=== PATIENT | female | born 1985 | race Caucasian/White ===

== ENCOUNTER 2018-09-23 07:33 | Emergency (ER) | payer OTHER ==
[~2018-09-23] VITALS: Ht 157.5 cm; Wt 75.0 kg
[2018-09-23] MEDS ORDERED: ZOLO100T PO (07:42)
[2018-09-23] MEDS ORDERED: LABE10TAB PO (07:42)
[2018-09-23] MEDS ORDERED: FIOR1CAP PO (07:42)
[2018-09-23] MEDS ORDERED: ACETAMINOPHEN 500 MG TAB PO ONE (08:15)
[2018-09-23 08:24] LABS: BASO % 0.4 % (0.0-1.0); EOS # 0.1 10^3/uL (0.0-0.50); EOS % 1.5 % (0.0-3.0); HEMATOCRIT 39.3 % (36.0-47.0); HEMOGLOBIN 13.5 g/dl (12.0-15.5); LYMPH # 1.7 10^3/uL (1.5-4.5); LYMPH % 24.3 % (24.0-44.0); MEAN CORPUSCULAR HEMOGLOBIN 29.9 pg (27.0-33.0); MEAN CORPUSCULAR HGB CONC 34.4 g/dl (32.0-36.5); MEAN CORPUSCULAR VOLUME 86.9 fl (80.0-96.0); MONO # 0.4 10^3/uL (0.0-0.8); MONO % 6.1 % (0.0-5.0); NEUTROPHILS # 4.6 10^3/uL (1.8-7.7); NEUTROPHILS % 67.6 % (36.0-66.0); PLATELET COUNT, AUTOMATED 311 10^3/uL (150-450); RED BLOOD COUNT 4.52 10^6/uL (4.00-5.40); WHITE BLOOD COUNT 6.8 10^3/uL (4.0-10.0)
[2018-09-23 08:26] LABS: APPEARANCE, URINE CLEAR (CLEAR); BACTERIA, URINE AUTO NEGATIVE (NEGATIVE); BILIRUBIN, URINE AUTO NEGATIVE (NEGATIVE); BLOOD, URINE BLOOD NEGATIVE (NEGATIVE); COLOR, URINE YELLOW (YELLOW); GLUCOSE, URINE (UA) AUTO NEGATIVE (NEGATIVE); KETONE, URINE AUTO NEGATIVE (NEGATIVE); LEUKOCYTE ESTERASE, URINE AUTO NEGATIVE (NEGATIVE); NITRITE, URINE AUTO NEGATIVE (NEGATIVE); PROTEIN, URINE AUTO NEGATIVE (NEGATIVE); RBC, URINE AUTO 1 /HPF (0-3); SPECIFIC GRAVITY URINE AUTO 1.014 (1.002-1.035); SQUAMOUS EPITHELIAL CELL UR AU 0 /HPF (0-6); UROBILINOGEN, URINE AUTO 0.2 mg/dL (0.0-2.0); WBC, URINE AUTO 1 /HPF (0-3)
[2018-09-23 08:53] LABS: ALT/SGPT 57 U/L (12-78); BILIRUBIN,TOTAL 0.2 MG/DL (0.2-1.0); BLOOD UREA NITROGEN 22 MG/DL (7-18); C REACTIVE PROTEIN QUANTITATIV < 0.30 MG/DL (0.00-0.30); CALCIUM LEVEL 9.1 MG/DL (8.5-10.1); CARBON DIOXIDE LEVEL 27 MEQ/L (21-32); CHLORIDE LEVEL 104 MEQ/L (98-107); CREATININE FOR GFR 0.65 MG/DL (0.55-1.30); GAMMA GLUTAMYLTRANSPEPTIDASE 128 U/L (5-55); GLOMERULAR FILTRATION RATE > 60.0 (>60); GLUCOSE, FASTING 96 MG/DL (70-100); LIPASE 875 U/L (73-393); POTASSIUM SERUM 4.2 MEQ/L (3.5-5.1); SODIUM LEVEL 137 MEQ/L (136-145); TOTAL PROTEIN 7.4 GM/DL (6.4-8.2)
--- NOTE | 2018-09-23 09:34 | REP ---
Right upper quadrant sonography: History: Upper quadrant pain. Comparison study: No comparison study. Findings: Scanning through the right upper quadrant of the abdomen demonstrates a normal sized, thin-walled gallbladder without evidence of stone or polyp. Common bile duct is normal measuring 0.3 cm in greatest diameter. No focal liver lesion is seen. Liver size is normal. No pancreatic abnormality is observed. No right renal abnormality is seen. There is no evidence of ascites. The right kidney measures 11.2 x 5.0 x 4.8 cm. Impression: Negative right upper quadrant sonography. Electronically Signed by Ivan Ayala MD 09/23/2018 09:25 A
[2018-09-23] MEDS ORDERED: KETO10TAB PO (09:41)
[2018-09-23 09:52] VITALS: BP 136/94
== END 2018-09-23 10:08 | disposition home or self-care (01) ==
LOC: M ED 07:33
DX: K80.50 Calculus of bile duct without cholangitis or cholecystitis without obstruction (principal); I10 Essential (primary) hypertension; F32.9 Major depressive disorder, single episode, unspecified; R51 Headache; Z87.442 Personal history of urinary calculi; Z88.0 Allergy status to penicillin; Z79.899 Other long term (current) drug therapy

== ENCOUNTER 2018-09-26 04:23 | Inpatient (IN) | payer OTHER ==
[~2018-09-26] VITALS: Ht 157.5 cm; Wt 77.1 kg
[~2018-09-26 04:23] MED LIST: FIOR1CAP PO; KETO10TAB PO; LABE10TAB PO; ZOLO100T PO
[2018-09-26] MEDS ORDERED: NS 1,000 ML IV ONE ×2 (06:30→14:00)
[2018-09-26] MEDS ORDERED: ONDANSETRON 4MG/2ML VIAL (J2405) IV ONE (06:30)
[2018-09-26] MEDS ORDERED: KETOROLAC 30 MG/ML VIAL (J1885) IV ONE (06:30)
[2018-09-26 06:34] LABS: BASO % 0.7 % (0.0-1.0); EOS # 0.1 10^3/uL (0.0-0.50); EOS % 2.9 % (0.0-3.0); LYMPH # 1.6 10^3/uL (1.5-4.5); MEAN CORPUSCULAR HGB CONC 34.2 g/dl (32.0-36.5); MEAN CORPUSCULAR VOLUME 87.6 fl (80.0-96.0); MONO # 0.3 10^3/uL (0.0-0.8); MONO % 7.1 % (0.0-5.0); NEUTROPHILS # 2.1 10^3/uL (1.8-7.7); NEUTROPHILS % 50.1 % (36.0-66.0); RED BLOOD COUNT 4.34 10^6/uL (4.00-5.40); WHITE BLOOD COUNT 4.2 10^3/uL (4.0-10.0)
[2018-09-26 06:42] LABS: HCG, SERUM QUALITATIVE NEGATIVE (NEGATIVE)
[2018-09-26 06:58] LABS: ALBUMIN 3.7 GM/DL (3.2-5.2); ALT/SGPT 40 U/L (12-78); AMYLASE 156 U/L (25-115); BILIRUBIN,DIRECT < 0.1 MG/DL (0.0-0.2); BILIRUBIN,TOTAL 0.2 MG/DL (0.2-1.0); BLOOD UREA NITROGEN 16 MG/DL (7-18); CARBON DIOXIDE LEVEL 25 MEQ/L (21-32); CHLORIDE LEVEL 106 MEQ/L (98-107); CREATININE FOR GFR 0.66 MG/DL (0.55-1.30); GLOMERULAR FILTRATION RATE > 60.0 (>60); GLUCOSE, FASTING 84 MG/DL (70-100); LIPASE 1704 U/L (73-393); POTASSIUM SERUM 4.6 MEQ/L (3.5-5.1); SODIUM LEVEL 140 MEQ/L (136-145)
[2018-09-26] MEDS ORDERED: ISOVUE-370 76% 125ML VIAL (Q9967 PER ML) As Ordered ONE (06:59)
--- NOTE | 2018-09-26 08:06 | REPVR ---
EXAM: CT Abdomen and Pelvis With Contrast EXAM DATE/TIME: 09/26/2018 6:16 AM CLINICAL HISTORY: 33 years old, female; Pain; Abdominal pain; Localized; Right upper quadrant (ruq); Additional info: Ruq pain; Nausea; Elevated lipase 2 days ago TECHNIQUE: Imaging protocol: Axial computed tomography images of the abdomen and pelvis with intravenous contrast. Coronal and sagittal reformatted images were created and reviewed. Radiation optimization: All CT scans at this facility use at least one of these dose optimization techniques: automated exposure control; mA and/or kV adjustment per patient size (includes targeted exams where dose is matched to clinical indication); or iterative reconstruction. Contrast material: ISO Contrast volume: 100 ml Contrast route: AC COMPARISON: Abdomen, limited US 09/23/2018 8:40 AM FINDINGS: Lower thorax: No acute airspace or pleural disease. ABDOMEN: Liver: Fatty infiltration of the liver. Gallbladder and bile ducts: Contracted gallbladder limiting evaluation. No biliary ductal dilatation. Pancreas: No pancreatic mass or ductal dilatation. Spleen: No splenomegaly. Adrenals: Subtle right adrenal nodularity. Kidneys and ureters: Normal renal morphology. No hydronephrosis. Stomach and bowel: Wall thickening in the proximal stomach. Mild dilatation of the distal ileum. Prominent stool. Appendix: Appendix not visualized. PELVIS: Bladder: Normal bladder morphology. Reproductive: Indwelling tampon. 10 mm right ovarian follicle. ABDOMEN and PELVIS: Intraperitoneal space: No significant free fluid. Bones/joints: No acute osseous pathology. Soft tissues: Unremarkable. Vasculature: Normal caliber of the abdominal aorta. Lymph nodes: Mesenteric lymph nodes including a 17 x 12 mm lymph node in the right lower quadrant. IMPRESSION: 1. Wall thickening in the proximal stomach. 2. Additional findings as described above. Electronically signed by: Daniel Saini On 09/26/2018 08:06:12 AM
[2018-09-26] MEDS ORDERED: ONDANSETRON 4MG/2ML VIAL (J2405) IV PRN (08:45)
[2018-09-26] MEDS ORDERED: SENOKOT S TAB PO SCH (09:00)
[2018-09-26] MEDS ORDERED: E-Z-PAQUE 96% w/w SUSP 176GM BTL As Ordered ONE (09:24)
[2018-09-26] MEDS ORDERED: VITMTA PO (09:25)
[2018-09-26] MEDS ORDERED: E-Z-HD 98% w/w 340GM SUSP BTL As Ordered ONE (09:25)
[2018-09-26] MEDS ORDERED: ZOFR4TAB16 PO (09:25)
[2018-09-26] MEDS ORDERED: KETO10TAB PO (09:25)
[2018-09-26] MEDS ORDERED: SERT50TA PO (09:25)
[2018-09-26] MEDS ORDERED: E-Z-GAS II EFFERVESCENT PACKET (SODIUM BICARB./CITRIC ACID/SIMETHICONE) As Ordered ONE (09:25)
[2018-09-26] MEDS ORDERED: LABE20TAB PO (09:25)
[2018-09-26] MEDS ORDERED: METOCLOPRAMIDE INJ 10MG/2ML VIAL (J2765) IV PRN (10:30)
[2018-09-26] MEDS ORDERED: GI COCKTAIL 50ML BTL(HYOSCYAMINE/MAALOX/LIDOCAINE VISCOUS)(1:3:1) PO PRN (10:30)
[2018-09-26] MEDS ORDERED: MOM 30ML SUSPENSION UDC PO PRN (12:00)
[2018-09-26] MEDS ORDERED: SENOKOT S TAB PO PRN (12:00)
[2018-09-26] MEDS ORDERED: MORPHINE 4 MG/ML 1ML VIAL/SYRINGE (J2270) IV PRN (12:00)
[2018-09-26 13:10] VITALS: BP 134/90
[2018-09-26] MEDS: HEPARIN SOD (PORCINE) 5000 UNITS/ML VIAL SC SCH ×3 (13:25→20:20)
[2018-09-26] MEDS: PANTOPRAZOLE 40MG INJ (PROTONIX) (C9113) IV SCH (13:25)
[2018-09-26] MEDS: SUCRALFATE 1 GM TAB PO SCH ×3 (13:26→20:18)
[2018-09-26] MEDS ORDERED: FIORICET TAB PO PRN (13:30)
[2018-09-26] MEDS ORDERED: METOCLOPRAMIDE INJ 10MG/2ML VIAL (J2765) IV ONE (13:45)
[2018-09-26] MEDS: KETOROLAC 30 MG/ML VIAL (J1885) IV SCH ×2 (14:07→20:18)
[2018-09-26] MEDS: NS 1,000 ML IV SCH (14:08)
--- NOTE | 2018-09-26 14:17 | HPE ---
DATE OF ADMISSION: 09/26/2018 CHIEF COMPLAINT: Right upper quadrant abdominal pain. 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 The patient was seen in the emergency room on 09/25/2018, ultrasound of the gallbladder was negative. There was a thin walled normal sized gallbladder without evidence of stone or polyp. Liver function tests were within normal and the patient was discharged home with a diagnosis of biliary colic and given Toradol and Zofran as an outpatient. Into the evening, the patient had persistent pain, describes the pain again as sharp and stabbing, lasting for about half an hour to two hours, and has been on and off. The patient denies any fever, chills, diarrhea or constipation. This pain is worse when she is ambulating or when she tries to do anything exertional. It is better when she is in the position at rest and lying down. The patient has had no food aversion, was able to continue eating without vomiting; however, she did complain of a decrease in appetite for the past three days due to severe pain. Despite Toradol every 4 hours the patient has had no improvement in the pain prompting her to come to the emergency room. The patient denies any history of alcohol abuse and states that they are trying to get . Urine test was negative. She denies any history of any alcohol abuse in the past. Denies any prior history of gallstones. She denies any dysuria, urgency, or frequency, fever or chills, flank pain or hematuria. She denies any dysphagia, odynophagia, coffee ground emesis, no complaints of heartburn, shortness of breath, chest pain, pressure or tightness, lightheadedness, dizziness, or near syncopal episodes. In the ER, on arrival today lipase level was found to be 1704, amylase of 156. CT abdomen and pelvis showed fatty liver with contracted gallbladder limiting evaluation with no biliary ductal dilatation, no pancreatic mass or dilatation, no splenomegaly. Bladder was normal. There is a 10 mm right ovarian follicle and mesenteric lymph nodes measuring 17 x 12 mm lymph node in the right lower quadrant. There is prominent stool and distal ileal mild dilatation and an indwelling tampon was noted along with a 10 mm right ovarian follicle. The hospitalist service was called to admit for abdominal pain/acute pancreatitis with elevated lipase level of 1700. PAST MEDICAL HISTORY: Migraines headaches. Depression. Hypertension since the age of 19. PAST SURGICAL HISTORY: Appendectomy, 2003. 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 Denies any cigarette use. Denies any history of alcohol abuse or current alcohol use. Lives with her . Currently trying to get . No recreational drug use. FAMILY HISTORY: Mother and father in their 50s. Father with hypertension. REVIEW OF SYSTEMS: Per HPI, 12 point system otherwise negative. PHYSICAL EXAMINATION: Temperature 97.8, pulse 80, respiratory rate 16, blood pressure 125/82, 97% on room air. Generally, patient is awake, alert and oriented to person, place and time, answering questions appropriately. She is tearful at the bedside due to pain and inability to go home to take care of her children. She has no respiratory distress. No jugular venous distention (JVD). No thyromegaly. No cervical lymphadenopathy. Moist mucous membranes. Lungs are clear to auscultation. No wheezing, rales or rhonchi. Heart S1, S2. Sinus rhythm. Abdomen is soft, tender right upper quadrant. No rebound, guarding. Positive bowel sounds times four quadrants. Extremities have no cyanosis, clubbing or any pitting edema. White count 4.2, hemoglobin 13, hematocrit 38, platelet count not noted. Sodium 140, potassium 4.6, chloride 106, bicarb 25, BUN 16, creatinine 0.66, glucose of 84, calcium 9, total bilirubin 0.2, direct bilirubin less than 0.1, AST 27, ALT 40, alkaline phosphatase 77, total protein 7, albumin 3.7, amylase 156, lipase 1704. HCG was negative. CT abdomen and pelvis: Fatty liver, contracted gallbladder limiting evaluation. No biliary ductal dilatation. No pancreatic mass or ductal dilation. No splenomegaly. Subtle right adrenal nodularity. Normal renal morphology. No hydronephrosis. Wall thickening in the proximal stomach. Mild dilatation of the distal ileum. Prominent stool. Appendix not visualized. Normal bladder morphology. Indwelling tampon. 10 mm right ovarian follicle. Normal abdominal aortic. Mesenteric lymph nodes including 17 x 12 mm lymph node in the right lower quadrant. Ultrasound of the gallbladder on 09/25/2018 has a normal sized thin walled gallbladder without evidence of stone or polyp. Common bile duct is normal measuring 0.3 cm in greater diameter. No focal liver lesion is seen. Liver size is normal. No pancreatic abnormality. No renal abnormality. No evidence of ascites. Right kidney measures 11.2 x 5.0 x 4.8 cm, essentially negative right upper quadrant sonogram. ASSESSMENT/PLAN: This is a 33-year-old female with past medical history significant for migraines, appendectomy in 2003, hypertension, who presented to the emergency room with a three day history of persistent nausea without vomiting, and right upper quadrant pain. She was seen in the ER on 09/25, diagnosed with biliary colic and discharged home with Zofran and Toradol. The patient returns today with persistent nausea and right upper quadrant abdominal pain, found to have a lipase level of 1700. The patient will be admitted as an inpatient for two midnights for the following issues: Acute pancreatitis no gallstones on ultrasound with elevated lipase For her Abdominal pain, Differential diagnoses of acute pancreatitis, irritable bowel syndrome, mesenteric adenitis. The patient will be treated for acute pancreatitis with IV fluids, bowel rest, clears as tolerated, pain control with IV morphine and [place] as needed, bowel regimen and intravenous Toradol, IV fluids. Court Transcriber, Dr. Rouse, has been consulted. Upper GI series is pending. The patient is currently on proton pump inhibitor (PPI). Defer to Dr. Rouse if upper endoscopy is needed. Fatty Liver lipid panel noted Mesenteric LAD due to acute pancreatitis r/o mesenteric adenitis. no diarrhea. Thickened proximal stomach GI consulted. Hypertension. Patient may be resumed on her home medications. Continue on labetalol. History of migraines. Fioricet as needed. Depression. Continue on sertraline. Diet: npo for ugi series MTDD
[2018-09-26] MEDS: NORCO, ANEXSIA 5/325MG TABLET (HYDROcodone/ACETAMINOPHEN) PO PRN ×2 (15:57→22:23)
[2018-09-26 16:00] VITALS: BP 123/65
--- NOTE | 2018-09-26 17:03 | REP ---
Examination Requested: Upper G.I. Series With Small Bowel Reason For Exam: Abdominal pain and intractable vomiting. Upper GI Air Contrast The procedure was performed under the erect supervision of Dr. Ayala . The images were reviewed with Dr. Ayala . The productivity engineer film shows contrast uptake in the urinary system from prior CT scan. The intestinal gas pattern appears normal. Liquid barium and gas producing crystals were given tissue in the erect position as well as liquid barium in the prone position in order to perform a double contrast upper GI examination. The oral and pharyngeal stages of deglutition were unremarkable. Esophageal transport is efficient and there is no esophagitis, stricture, or mucosal ring noted. There is a small hiatal hernia. The stomach denson are normally outlined. The rugal folds are smooth and regular. There is no gastritis, neoplasm, ulcer disease noted. The duodenal denson are normally outlined. The mucosal folds are smooth and regular. There is no duodenitis, pancreatitis, peptic ulcer disease, or neoplasm noted. The barium column was followed through the small bowel to the level of the terminal ileum. Small bowel transit time is approximately 45 minutes. During fluoroscopy. Gentle palpation shows all loops are freely mobile and pliable. There are no fixed or angulated loops. The small bowel mucosal pattern is normal in course and caliber. There is no transition to suggest a partial small-bowel obstruction. Spot film of the terminal ileum shows it to be unremarkable. Impression; 1. Small hiatal hernia. 2 minutes of fluoroscopy time was utilized for this procedure. Reviewed by AMRIA ESTHER Bee 09/26/2018 04:46 P Electronically Signed by Ivan Ayala MD 09/26/2018 04:54 P
[2018-09-26 20:00] VITALS: BP 111/62
[2018-09-26 20:10] VITALS: BP 109/65
[2018-09-26 20:17] VITALS: BP 90/40
[2018-09-26] MEDS: LABETALOL 100 MG TAB PO SCH (20:19)
[2018-09-26 20:38] LABS: ERYTHROCYTE SEDIMENTATION RATE 5 mm/hr (0-20)
[2018-09-26] MEDS ORDERED: SERTRALINE HCL 50 MG TAB PO SCH (21:00)
[2018-09-26] MEDS ORDERED: MULTIVITAMINS/MINERALS THERAP 1 TAB PO SCH (21:00)
[2018-09-27] VITALS (8 sets, daily range): BP systolic 101–141; BP diastolic 62–94
[2018-09-27] MEDS: KETOROLAC 30 MG/ML VIAL (J1885) IV SCH ×2 (01:36→09:35)
[2018-09-27] MEDS: NS 1,000 ML IV SCH ×2 (01:38→09:44)
[2018-09-27] MEDS: HEPARIN SOD (PORCINE) 5000 UNITS/ML VIAL SC SCH (05:40)
[2018-09-27] MEDS: SUCRALFATE 1 GM TAB PO SCH (05:40)
[2018-09-27 07:09] LABS: BASO % 0.7 % (0.0-1.0); EOS # 0.1 10^3/uL (0.0-0.50); EOS % 2.3 % (0.0-3.0); HEMATOCRIT 39.2 % (36.0-47.0); HEMOGLOBIN 13.3 g/dl (12.0-15.5); LYMPH # 1.3 10^3/uL (1.5-4.5); LYMPH % 30.1 % (24.0-44.0); MEAN CORPUSCULAR HEMOGLOBIN 29.4 pg (27.0-33.0); MEAN CORPUSCULAR HGB CONC 33.9 g/dl (32.0-36.5); MEAN CORPUSCULAR VOLUME 86.5 fl (80.0-96.0); MONO # 0.3 10^3/uL (0.0-0.8); MONO % 7.6 % (0.0-5.0); NEUTROPHILS # 2.6 10^3/uL (1.8-7.7); NEUTROPHILS % 59.1 % (36.0-66.0); PLATELET COUNT, AUTOMATED 311 10^3/uL (150-450); RED BLOOD COUNT 4.53 10^6/uL (4.00-5.40); WHITE BLOOD COUNT 4.3 10^3/uL (4.0-10.0)
[2018-09-27 07:34] LABS: ALBUMIN 3.4 GM/DL (3.2-5.2); ALT/SGPT 36 U/L (12-78); AMYLASE 55 U/L (25-115); BILIRUBIN,TOTAL 0.3 MG/DL (0.2-1.0); BLOOD UREA NITROGEN 8 MG/DL (7-18); CALCIUM LEVEL 8.4 MG/DL (8.5-10.1); CARBON DIOXIDE LEVEL 25 MEQ/L (21-32); CHLORIDE LEVEL 109 MEQ/L (98-107); CREATININE FOR GFR 0.53 MG/DL (0.55-1.30); GLOMERULAR FILTRATION RATE > 60.0 (>60); GLUCOSE, FASTING 99 MG/DL (70-100); LIPASE 180 U/L (73-393); POTASSIUM SERUM 4.2 MEQ/L (3.5-5.1); SODIUM LEVEL 142 MEQ/L (136-145); TOTAL PROTEIN 6.4 GM/DL (6.4-8.2)
[2018-09-27] MEDS ORDERED: PROPOFOL 200 MG/20 ML VIAL As Ordered ONE ×2 (08:18→08:29)
[2018-09-27] MEDS ORDERED: fentaNYL 100 MCG/2 ML INJECTION (J3010) As Ordered ONE (08:19)
[2018-09-27] MEDS ORDERED: SIMETHICONE 40MG/0.6ML DROPS 30ML As Ordered ONE (08:30)
[2018-09-27] MEDS ORDERED: ONDANSETRON 4MG/2ML VIAL (J2405) As Ordered ONE (08:41)
[2018-09-27 08:51] LABS: CHOLESTEROL LEVEL 196 MG/DL (<200); HDL CHOLESTEROL 41 MG/DL (>40); LDL CHOLESTEROL 116 MG/DL (<100); NON-HDL-C 155 MG/DL; TRIGLYCERIDES LEVEL 195 MG/DL (<150)
--- NOTE | 2018-09-27 08:53 | ROOR ---
Patient Name: Stacy Barahona Procedure Date: 09/27/2018 7:55 AM Date of : 1985 Age: 33 Gender: Female Note Status: Finalized Procedure: Upper GI endoscopy Indications: Epigastric abdominal pain, Abnormal CT of the GI tract, Pancreatitis, Nausea with vomiting Providers: Reginaldo ROUSE MD Referring MD: 2. Inpatient 2. Inpatient Requesting Provider: Medicines: Monitored Anesthesia Care Complications: No immediate complications. Procedure: Pre-Anesthesia Assessment: - The heart rate, respiratory rate, oxygen saturations, blood pressure, adequacy of pulmonary ventilation, and response to care were monitored throughout the procedure. The Endoscope was introduced through the mouth, and advanced to the third part of duodenum. The upper GI endoscopy was accomplished without difficulty. The patient tolerated the procedure well. Findings: Non-severe esophagitis was found at the gastroesophageal junction. Biopsies were taken with a cold forceps for histology. The entire examined stomach was normal. Biopsies were taken with a cold forceps for histology. The examined duodenum was normal. Biopsies were taken with a cold forceps for histology. Impression: - Non-severe reflux esophagitis. Biopsied. - Normal stomach. Biopsied. - Normal examined duodenum. Biopsied. Recommendation: - Observe patient's clinical course. - Advance diet as tolerated. - With no offending meds, negative Ultrasound for gallstones and no alcohol history, negative EGD for DU/, the acute pancreatitis is/was idiopathic. Labs have resolved overnight. - recommendation is to observe and advance diet as tolerated to low fat diet. - For future/recurrent episodes (if any), consideration may be given to cholecystectomy- for possible microlithiasis. Reginaldo Rouse MD Reginaldo ROUSE MD 09/27/2018 8:52:46 AM Electronically signed by Reginaldo ROUSE MD Number of Addenda: 0 Note Initiated On: 09/27/2018 7:55 AM Estimated Blood Loss: Estimated blood loss: none.
[2018-09-27] MEDS: PANTOPRAZOLE 40MG INJ (PROTONIX) (C9113) IV SCH (09:35)
[2018-09-27] MEDS: LABETALOL 100 MG TAB PO SCH (09:37)
--- NOTE | 2018-09-27 19:31 | DS.PDOC ---
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 The patient was seen in the emergency room on 09/25/2018, ultrasound of the gallbladder was negative. There was a thin walled normal sized gallbladder without evidence of stone or polyp. Liver function tests were within normal and the patient was discharged home with a diagnosis of biliary colic and given Toradol and Zofran as an outpatient. Into the evening, the patient had persistent pain, describes the pain again as sharp and stabbing, lasting for about half an hour to two hours, and has been on and off. The patient denies any fever, chills, diarrhea or constipation. This pain is worse when she is ambulating or when she tries to do anything exertional. It is better when she is in the position at rest and lying down. The patient has had no food aversion, was able to continue eating without vomiting; however, she did complain of a decrease in appetite for the past three days due to severe pain. Despite Toradol every 4 hours the patient has had no improvement in the pain prompting her to come to the emergency room. The patient denies any history of alcohol abuse and states that they are trying to get . Urine test was negative. She denies any history of any alcohol abuse in the past. Denies any prior history of gallstones. She denies any dysuria, urgency, or frequency, fever or chills, flank pain or hematuria. She denies any dysphagia, odynophagia, coffee ground emesis, no complaints of heartburn, shortness of breath, chest pain, pressure or tightness, lightheadedness, dizziness, or near syncopal episodes. In the ER, on arrival today lipase level was found to be 1704, amylase of 156. CT abdomen and pelvis showed fatty liver with contracted gallbladder limiting evaluation with no biliary ductal dilatation, no pancreatic mass or dilatation, no splenomegaly. Bladder was normal. There is a 10 mm right ovarian follicle and mesenteric lymph nodes measuring 17 x 12 mm lymph node in the right lower quadrant. There is prominent stool and distal ileal mild dilatation and an indwelling tampon was noted along with a 10 mm right ovarian follicle. The hospitalist service was called to admit for abdominal pain/acute pancreatitis with elevated lipase level of 1700. HOSPITAL COURSE: Nonsevere Esophagitis no gallstones on ultrasound with elevated lipase S/P IV fluids, bowel rest, clears as tolerated, pain control with IV morphine and [place] as needed, bowel regimen and intravenous Toradol, IV fluids. Television Engineering Teacher, Dr. Rouse, has been consulted. Upper GI series noted. The patient is currently on proton pump inhibitor (PPI). Defer to Dr. Rouse for egd. Fatty Liver lipid panel noted Mesenteric LAD due to acute pancreatitis r/o mesenteric adenitis. no diarrhea. Thickened proximal stomach GI consulted. Hypertension. Patient may be resumed on her home medications. Continue on labetalol. History of migraines. Fioricet as needed. Depression. Continue on sertraline. DISCHARGE PHYSICAL EXAMINATION: VITALS: PLS SEE BELOW Generally, patient is awake, alert and oriented to person, place and time, answering questions appropriately. She is tearful at the bedside due to pain and inability to go home to take care of her children. She has no respiratory distress. No jugular venous distention (JVD). No thyromegaly. No cervical lymphadenopathy. Moist mucous membranes. Lungs are clear to auscultation. No wheezing, rales or rhonchi. Heart S1, S2. Sinus rhythm. Abdomen is soft, tender right upper quadrant. No rebound, guarding. Positive bowel sounds times four quadrants. Extremities have no cyanosis, clubbing or any pitting edema. LABORATORY DATA, IMAGING STUDIES: PLS SEE BELOW CT abdomen and pelvis: Fatty liver, contracted gallbladder limiting evaluation. No biliary ductal dilatation. No pancreatic mass or ductal dilation. No splenomegaly. Subtle right adrenal nodularity. Normal renal morphology. No hydronephrosis. Wall thickening in the proximal stomach. Mild dilatation of the distal ileum. Prominent stool. Appendix not visualized. Normal bladder morphology. Indwelling tampon. 10 mm right ovarian follicle. Normal abdominal aortic. Mesenteric lymph nodes including 17 x 12 mm lymph node in the right lower quadrant. Ultrasound of the gallbladder on 09/25/2018 has a normal sized thin walled gallbladder without evidence of stone or polyp. Common bile duct is normal measuring 0.3 cm in greater diameter. No focal liver lesion is seen. Liver size is normal. No pancreatic abnormality. No renal abnormality. No evidence of ascites. Right kidney measures 11.2 x 5.0 x 4.8 cm, essentially negative right upper quadrant sonogram. TIME SPENT ON DISCHARGE: 30 MIN Vital Signs/I&Os Vital Signs Date Time Temp Pulse Resp B/P (MAP) Pulse Ox O2 Delivery O2 Flow Rate FiO2 09/27/18 12:05 98.2 76 17 116/66 (83) 97 09/26/18 04:24 Room Air I&O- Last 24 Hours up to 6 AM 09/27/18 06:00 Intake Total 3060 ml Output Total 2600 ml Balance 460 ml Laboratory Data Labs 24H Laboratory Tests 2 09/26/18 20:07: Reticulocyte # (auto) 34.1, Erythrocyte Sedimentation Rate 5, Percent Reticulocyte Count 0.9, Reticulocyte Hemoglobin Equivalent 35.9, Lactic Acid Level 1.3, Lactate Dehydrogenase 133, C-Reactive Protein, Quantitative < 0.30 09/27/18 06:44: Immature Granulocyte % (Auto) 0.2, White Blood Count 4.3, Red Blood Count 4.53, Hemoglobin 13.3, Hematocrit 39.2, Mean Corpuscular Volume 86.5, Mean Corpuscular Hemoglobin 29.4, Mean Corpuscular Hemoglobin Concent 33.9, Red Cell Distribution Width 11.8, Platelet Count 311, Neutrophils (%) (Auto) 59.1, Lymphocytes (%) (Auto) 30.1, Monocytes (%) (Auto) 7.6H, Eosinophils (%) (Auto) 2.3, Basophils (%) (Auto) 0.7, Neutrophils # (Auto) 2.6, Lymphocytes # (Auto) 1.3L, Monocytes # (Auto) 0.3, Eosinophils # (Auto) 0.1, Basophils # (Auto) 0.0, Nucleated Red Blood Cells % (auto) 0.0, Anion Gap 8, Glomerular Filtration Rate > 60.0, Blood Urea Nitrogen 8, Creatinine 0.53L, Sodium Level 142, Potassium Level 4.2, Chloride Level 109H, Carbon Dioxide Level 25, Calcium Level 8.4L, Aspartate Amino Transf (AST/SGOT) 16, Alanine Aminotransferase (ALT/SGPT) 36, Alkaline Phosphatase 73, Total Bilirubin 0.3, Triglycerides Level 195H, LDL Cholesterol 116H, Total Protein 6.4, Albumin 3.4, Albumin/Globulin Ratio 1.13, Total Cholesterol 196, Non-HDL Cholesterol (LDL + VLDL) 155, Total HDL Cholesterol 41, Cholesterol/HDL Ratio 4.780, Amylase Level 55, Lipase 180 CBC/BMP Laboratory Tests 09/27/18 06:44 Red Blood Count 4.53, Mean Corpuscular Volume 86.5, Mean Corpuscular Hemoglobin 29.4, Mean Corpuscular Hemoglobin Concent 33.9, Red Cell Distribution Width 11.8, Neutrophils (%) (Auto) 59.1, Lymphocytes (%) (Auto) 30.1, Monocytes (%) (Auto) 7.6 H, Eosinophils (%) (Auto) 2.3, Basophils (%) (Auto) 0.7, Neutrophils # (Auto) 2.6, Lymphocytes # (Auto) 1.3 L, Monocytes # (Auto) 0.3, Eosinophils # (Auto) 0.1, Basophils # (Auto) 0.0, Calcium Level 8.4 L, Aspartate Amino Transf (AST/SGOT) 16, Alanine Aminotransferase (ALT/SGPT) 36, Alkaline Phosphatase 73, Total Bilirubin 0.3, Triglycerides Level 195 H, LDL Cholesterol 116 H, Total Protein 6.4, Albumin 3.4 Discharge Medications Scheduled Labetalol HCl (Labetalol HCl) 200 Mg Tab, 100 MG PO BID, (Reported) Multivitamins *[facility]OCK[facility]* (Thera M Plus *[facility]OCK[facility]*) 1 Tab Tab, 1 TAB PO QHS, (Reported) Sertraline Hcl (Sertraline HCl) 50 Mg Tab, 150 MG PO QHS, (Reported) Scheduled PRN Acetamin/Butalbital/Caffeine (Fioricet 50-300-40 mg) 1 Cap Cap, 1 CAP PO Q6H PRN for MIGRAINE, (Reported) Ketorolac Tromethamine (Ketorolac Tromethamine) 10 Mg Tab, 10 MG PO Q6H PRN for PAIN, (Reported) Ondansetron HCl (Zofran) 4 Mg Tab, 4 MG PO Q6H PRN for NAUSEA OR VOMITING, (Reported) Allergies Coded Allergies: Penicillins (Verified Allergy, Unknown, 09/26/18) BEREKET KU MD Sep 27, 2018 19:31
== END 2018-09-27 12:25 | disposition home or self-care (01) | DRG 392 ==
LOC: M ED 04:23 → M ED INP 08:41 → M PED 13:17
PROVIDERS: ADMIT General Practice; ATTEND General Practice
PROC: 0DB68ZX Excision of Stomach, Via Natural or Artificial Opening Endoscopic, Diagnostic (ICD-10-PCS; principal; 2018-09-27 08:00)
DX: K20.9 Esophagitis, unspecified (principal); I10 Essential (primary) hypertension; G43.909 Migraine, unspecified, not intractable, without status migrainosus; E66.9 Obesity, unspecified; F32.9 Major depressive disorder, single episode, unspecified; Z68.31 Body mass index [BMI] 31.0-31.9, adult; Z88.0 Allergy status to penicillin

== ENCOUNTER 2019-04-06 07:33 | Emergency (ER) | payer OTHER ==
[~2019-04-06] VITALS: Ht 157.5 cm; Wt 71.0 kg
[2019-04-06 07:33] VITALS: BP 130/81
[~2019-04-06 07:33] MED LIST changes: +LABE20TAB PO; +SERT-141 PO; +VITMTA PO; +ZOFR4TAB16 PO
[2019-04-06] MEDS ORDERED: ACET160S3 PO (07:41)
[2019-04-06] MEDS ORDERED: IBUP200C28 PO (07:41)
[2019-04-06] MEDS ORDERED: SERT-141 PO (07:41)
--- NOTE | 2019-04-06 08:06 | REP ---
Right hand series: Four views. History: Injury. Findings: Four views right hand demonstrate overall normal mineralization. Bones, joints, and soft tissues are radiographically unremarkable. No fracture or subluxation is seen. Impression: Negative radiographs of the right hand. Electronically Signed by Ivan Ayala MD 04/06/2019 07:57 A
== END 2019-04-06 08:29 | disposition home or self-care (01) ==
LOC: M ED 07:33
DX: S60.221A Contusion of right hand, initial encounter (principal); W23.0XXA Caught, crushed, jammed, or pinched between moving objects, initial encounter; Y99.0 Civilian activity done for income or pay; Z88.0 Allergy status to penicillin; R51 Headache; I10 Essential (primary) hypertension; Z79.899 Other long term (current) drug therapy; Y92.89 Other specified places as the place of occurrence of the external cause

== ENCOUNTER 2019-06-15 22:40 | Emergency (ER) | payer OTHER ==
[~2019-06-15] VITALS: Ht 157.5 cm; Wt 73.6 kg
[~2019-06-15 22:40] MED LIST changes: +ACET160S3 PO; +IBUP200C28 PO
[2019-06-15] MEDS ORDERED: PREN1TAB11 PO (22:44)
[2019-06-16] MEDS ORDERED: LIDOCAINE 2% 5ML JELLY UROJET TOP ONE (00:45)
[2019-06-16 01:32] VITALS: BP 129/75
== END 2019-06-16 01:37 | disposition home or self-care (01) ==
LOC: M ED 22:40
DX: O26.891 Other specified pregnancy related conditions, first trimester (principal); Z3A.13 13 weeks gestation of pregnancy; O10.011 Pre-existing essential hypertension complicating pregnancy, first trimester; Z79.899 Other long term (current) drug therapy; Z88.0 Allergy status to penicillin

== ENCOUNTER → 2019-06-18 | Outpatient (REF) | payer OTHER ==
[~2019-06-18] MED LIST changes: +PREN1TAB11 PO
[2019-06-18 15:15] LABS: APPEARANCE, URINE CLEAR (CLEAR); BACTERIA, URINE AUTO NEGATIVE (NEGATIVE); BILIRUBIN, URINE AUTO NEGATIVE (NEGATIVE); BLOOD, URINE BLOOD NEGATIVE (NEGATIVE); COLOR, URINE YELLOW (YELLOW); GLUCOSE, URINE (UA) AUTO NEGATIVE (NEGATIVE); KETONE, URINE AUTO NEGATIVE (NEGATIVE); LEUKOCYTE ESTERASE, URINE AUTO NEGATIVE (NEGATIVE); MUCUS, URINE SMALL (NEGATIVE); NITRITE, URINE AUTO NEGATIVE (NEGATIVE); PROTEIN, URINE AUTO NEGATIVE (NEGATIVE); RBC, URINE AUTO 2 /HPF (0-3); SPECIFIC GRAVITY URINE AUTO 1.023 (1.002-1.035); SQUAMOUS EPITHELIAL CELL UR AU 4 /HPF (0-6); UROBILINOGEN, URINE AUTO 0.2 mg/dL (0.0-2.0); WBC, URINE AUTO 1 /HPF (0-3)
== END ==
LOC: M SMT 12:51
PROVIDERS: ATTEND Nurse Practitioner Women's Health
DX: R33.9 Retention of urine, unspecified (principal)
CPT/HCPCS: 51798; 81001; 87086; G0463

== ENCOUNTER 2019-10-20 11:13 | Outpatient (CLI) | payer OTHER ==
[~2019-10-20] VITALS: Ht 157.5 cm; Wt 81.2 kg
[2019-10-20] VITALS (9 sets, daily range): BP systolic 125–159; BP diastolic 84–97
[2019-10-20 12:23] LABS: BASO % 0.4 % (0.0-1.0); EOS # 0.1 10^3/uL (0.0-0.5); EOS % 1.5 % (0.0-3.0); HEMATOCRIT 33.3 % (36.0-47.0); HEMOGLOBIN 11.4 g/dl (12.0-15.5); LYMPH # 1.6 10^3/uL (1.5-5.0); LYMPH % 18.8 % (24.0-44.0); MEAN CORPUSCULAR HEMOGLOBIN 30.4 pg (27.0-33.0); MEAN CORPUSCULAR HGB CONC 34.2 g/dl (32.0-36.5); MEAN CORPUSCULAR VOLUME 88.8 fl (80.0-96.0); MONO # 0.5 10^3/uL (0.0-0.8); MONO % 5.6 % (0.0-5.0); NEUTROPHILS # 6.2 10^3/uL (1.5-8.5); PLATELET COUNT, AUTOMATED 286 10^3/uL (150-450); RED BLOOD COUNT 3.75 10^6/uL (4.00-5.40); WHITE BLOOD COUNT 8.4 10^3/uL (4.0-10.0)
[2019-10-20] MEDS ORDERED: ACETAMINOPHEN 500 MG TAB PO ONE (12:30)
[2019-10-20 12:44] LABS: TOTAL PROTEIN,RANDOM URINE 24.8 MG/DL (0.0-12.0)
[2019-10-20 12:52] LABS: ALT/SGPT 22 U/L (12-78); BILIRUBIN,TOTAL 0.1 MG/DL (0.2-1.0); CREATININE FOR GFR 0.49 MG/DL (0.55-1.30); GLOMERULAR FILTRATION RATE > 60.0 (>60); LDH LACTATE DEHYDROGENASE 162 U/L (84-246); URIC ACID 4.7 MG/DL (2.6-6.0)
--- NOTE | 2019-10-20 14:07 | IPNPDOC ---
Text Note Date of Service The patient was seen on 10/20/19. NOTE S: Stacy is a 34yo at 31+wks gestation by LMP, c/w 8+3wk US, who p resents to LND triage with c/o elevated BP noted at work, BAZZI, sudden onset swelling in hands and 5lb weight gain overnight, and an overall "lousy" feeling. 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 She denies visual changes and RUQ pain. She reports a history of migraines, but states this BAZZI feels like a tension band, 3/10 pain. She reports taking 650mg tylenol this morning at 0800, which did not help. She reports +FM and some nonpainful BH ctx; she denies LOF/VB/painful CTX. Her is complicated by the following: CHTN on Labetalol (100mg BID) Two Vessel Cord Migraine BAZZI (last took Fioricet 3 days ago) Depression (taking Zoloft) O: Initial BP 159/97, remainder BP range 125-135/85-93 FHR 130s, moderate variability, + accels, no decels noted CTX: irregular present, pt denies, soft by palpation (c/w pt's report of BH CTX) VE: not indicated at this time Pre-E Labs collected and WNL: Platelets 286, PC ratio 0.210; CMP WNL Pt provided 1000mg Tylenol and PO hydration for her BAZZI A: 34yo at 31+5 weeks with CHTN (on meds) Pre-E labs WNL Reactive NST Pt reports feeling better after arrival and rest BAZIZ still present, but no other s/sx of Pre-E BP stable at mild range P: Discharge pt home with strict return precautions Reviewed Pre-E precautions f/u [id number] in clinic for COB f/u continue Labetalol as prescribed Tylenol 1g q6-8 hours PRN for BAZZI Work note provided for pt to remain off for the remainder of the week Pt reviewed with Dr. Wellington VS,Tony, I+O Tony POMPA, I+O Laboratory Tests 10/20/19 12:10 Vital Signs Date Time Temp Pulse Resp B/P (MAP) Pulse Ox O2 Delivery O2 Flow Rate FiO2 10/20/19 13:02 85 18 135/93 (107) 10/20/19 11:40 98.0 MADELINE MARRERO [facility] Oct 20, 2019 14:07
== END 2019-10-20 14:18 | disposition home or self-care (01) ==
LOC: M LDO 11:13
PROVIDERS: ATTEND Registered Nurse Maternal Newborn
DX: O16.3 Unspecified maternal hypertension, third trimester (principal); O26.893 Other specified pregnancy related conditions, third trimester; R51 Headache; Z3A.31 31 weeks gestation of pregnancy
CPT/HCPCS: 36415; 59025; 82247; 82565; 82570; 83615; 84156; 84450; 84460; 84550; 85025; G0378; G0463

== ENCOUNTER 2019-12-03 11:59 | Inpatient (IN) | payer OTHER ==
[~2019-12-03] VITALS: Ht 157.5 cm; Wt 86.2 kg
[2019-12-03] VITALS (38 sets, daily range): BP systolic 132–186; BP diastolic 83–120
[2019-12-03 13:34] LABS: BASO % 0.3 % (0.0-1.0); EOS # 0.1 10^3/uL (0.0-0.5); HEMATOCRIT 36.3 % (36.0-47.0); HEMOGLOBIN 12.1 g/dl (12.0-15.5); LYMPH # 1.5 10^3/uL (1.5-5.0); LYMPH % 15.5 % (24.0-44.0); MEAN CORPUSCULAR HEMOGLOBIN 29.6 pg (27.0-33.0); MEAN CORPUSCULAR HGB CONC 33.3 g/dl (32.0-36.5); MEAN CORPUSCULAR VOLUME 88.8 fl (80.0-96.0); MONO # 0.6 10^3/uL (0.0-0.8); MONO % 5.9 % (0.0-5.0); NEUTROPHILS # 7.1 10^3/uL (1.5-8.5); NEUTROPHILS % 76.1 % (36.0-66.0); PLATELET COUNT, AUTOMATED 295 10^3/uL (150-450); RED BLOOD COUNT 4.09 10^6/uL (4.00-5.40); WHITE BLOOD COUNT 9.4 10^3/uL (4.0-10.0)
[2019-12-03 13:41] LABS: APPEARANCE, URINE HAZY (CLEAR); BACTERIA, URINE AUTO NEGATIVE (NEGATIVE); BILIRUBIN, URINE AUTO NEGATIVE (NEGATIVE); BLOOD, URINE BLOOD 1+ (NEGATIVE); COLOR, URINE YELLOW (YELLOW); GLUCOSE, URINE (UA) AUTO NEGATIVE (NEGATIVE); KETONE, URINE AUTO NEGATIVE (NEGATIVE); LEUKOCYTE ESTERASE, URINE AUTO TRACE (NEGATIVE); NITRITE, URINE AUTO NEGATIVE (NEGATIVE); PROTEIN, URINE AUTO NEGATIVE (NEGATIVE); RBC, URINE AUTO 19 /HPF (0-3); SPECIFIC GRAVITY URINE AUTO 1.024 (1.002-1.035); SQUAMOUS EPITHELIAL CELL UR AU 3 /HPF (0-6); UROBILINOGEN, URINE AUTO 0.2 mg/dL (0.0-2.0); WBC, URINE AUTO 1 /HPF (0-3)
[2019-12-03] MEDS ORDERED: miSOPROStol 25 MCG 1/4 TAB (S0191) As Ordered ONE (13:45)
[2019-12-03] MEDS ORDERED: miSOPROStol 25 MCG 1/4 TAB (S0191) PV ONE (14:00)
[2019-12-03 14:02] LABS: TOTAL PROTEIN,RANDOM URINE 33.8 MG/DL (0.0-12.0)
[2019-12-03 14:14] LABS: ALT/SGPT 18 U/L (12-78); BILIRUBIN,TOTAL 0.4 MG/DL (0.2-1.0); GLOMERULAR FILTRATION RATE > 60.0 (>60); LDH LACTATE DEHYDROGENASE 229 U/L (84-246); URIC ACID 6.3 MG/DL (2.6-6.0)
--- NOTE | 2019-12-03 14:29 | HPEPDOC ---
Obstetrical History & Physical General Date of Admission December 03, 2019 at 11:59 History of Present Illness S: Stacy is a 34yo at 38+0wks gestation, EDC 17DEC2019 by LMP, c/w 8+3wk US, who is being admitted to LND for IOL d/t CHTN. She endorses excellent movement, some irregular CTX; she denies LOF/VB. She denies current BAZZI/RUQ pain/visual disturbances. She reports her last migraine was a few days ago and tylenol help with that pain. Her Blood Type is B Positive. GBS Negative is complicated by the following: CHTN on Labetalol (100mg BID) Two Vessel Cord Migraine BAZZI (Tylenol or Fioricet PRN) Depression (doing well on Zoloft) Overweight with Excessive Weight gain of 29lbs OB Hx: 2004 at 39wks, male was 6lbs; SAB 2012 Chief Complaint: Induction of labor Information Provided By: Patient Age: 34 : 3 Term: 1 Pre-term: 0 Abortions: 1 Livin Care Care: Good Care Number of Visits: 9 Dating Final EDC: Dec 17, 2019 Final EDC for Daily Update: Dec 17, 2019 Final EDC by: LMP Antepartum Course Diagnos(e)s CHTN on meds Two Vessel Cord Height (inches): 62 Pre- weight (lbs.): 156 Admission Weight (lbs.): 185 Change in Weight (lbs.): 29 Past Medical History Past Obstetrical History : Past Obstetrical History: Multigravida Type of Delivery: Spontaneous Vaginal Del. 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 Past Medical History Medical History CHTN, Migraine BAZZI, Depression Surgical History: Appendectomy Family History Significant Family History: No pertinent family hx Allergies Coded Allergies: Penicillins (Verified Allergy, Severe, anyphylaxis, 04/06/19) Medications Scheduled Labetalol HCl (Labetalol HCl) 200 Mg Tab, 100 MG PO BID Vit No.124/Iron/Folic ( Vitamin Tablet) 1 Each Tablet, 1 TAB PO DAILY Sertraline Hcl (Sertraline HCl) 50 Mg Tablet, 200 MG PO DAILY Scheduled PRN Butalb/Acetaminophen/Caffeine (Fioricet 50-300-40 mg Capsule) 1 Cap Cap, 1 CAP PO Q6H PRN for MIGRAINE Miscellaneous Medications Acetaminophen (Acetaminophen) 160 Mg/5 Ml Solution, 650 MG PO Physical Examination Physical Examination GENERAL: Alert and oriented times three.. ABDOMEN: Gravid and non-tender to touch. FETUS: Is vertex (VTX) by sterile vaginal examination. HEART RATE: Regular rate. LUNGS: Observed nonlabored breathing. EXTREMITIES: Bilateral nonpitting edema. Vital Signs/I&O O: VSS, afebrile, normotensive FHR 125, moderate variability, + accels, no decels CTX by TOCO, irregular and mild by palpation VE: 2/40/-3, posterior CRB placed at 1357, 80/80 Cytotec #1, 25mcg PV placed at time of CRB placement Vital Signs Date Time Temp Pulse Resp B/P (MAP) Pulse Ox O2 Delivery O2 Flow Rate FiO2 12/03/19 13:04 97.2 89 20 132/86 (101) Laboratory Data 24H LABS Laboratory Tests 2 12/03/19 12:22: Serology Scanned Report Hepatitis B Testing 12/03/19 13:10: Immature Granulocyte % (Auto) 1.2, Neutrophils (%) (Auto) 76.1H, Lymphocytes (%) (Auto) 15.5L, Monocytes (%) (Auto) 5.9H, Eosinophils (%) (Auto) 1.0, Basophils (%) (Auto) 0.3, Neutrophils # (Auto) 7.1, Lymphocytes # (Auto) 1.5, Monocytes # (Auto) 0.6, Eosinophils # (Auto) 0.1, Basophils # (Auto) 0.0, Nucleated Red Blood Cells % (auto) 0.0, Urine Color YELLOW, Urine Appearance HAZY, Urine pH 6.0, Urine Specific [place] 1.024, Urine Protein NEGATIVE, Urine Glucose (Auto)(UA) NEGATIVE, Urine Ketones (Auto) NEGATIVE, Urine Blood 1+H, Urine Nitrite NEGATIVE, Urine Bilirubin NEGATIVE, Urine Urobilinogen 0.2, Urine Leukocyte Esterase (Auto) TRACEH, Urine WBC (Auto) 1, Urine RBC (Auto) 19H, Urine Hyaline Casts (Auto) 0, Urine Bacteria (Auto) NEGATIVE, Urine Squamous Epithelial Cells 3, Urine Sperm (Auto) , Urine Random Creatinine 125.0, Urine Random Total Protein 33.8H, Glomerular Filtration Rate > 60.0, Uric Acid 6.3H, Total Bilirubin 0.4, Aspartate Amino Transf (AST/SGOT) 17, Alanine Aminotransferase (ALT/SGPT) 18, Lactate Dehydrogenase 229 CBC/BMP Laboratory Tests 12/03/19 13:10 Pertinent Laboratoy Data Blood Type: B+ HIV: Negative Hepatitis B: Negative Rapid Plasma Reagin: Nonreactive Rubella: Immune Varicella: Immune Chlamydia/Gonorrhea: Negative Group B Streptococcus: Negative Quad Screen Test: Declined Anatomy Ultrasound Placenta Location: Anterior Normal Anatomy: No (Two Vessel Cord) Placenta Previa: No Other Ultrasounds [id number] - Growth 44%tile [id number] - 56%tile Assessment/Plan Assessment A: Stacy is a 34yo at 38wks, IOL for CHTN, normotensive, no s/sx of Pre-E, Category I FHT. CRB in place with 1st dose of Cytotec placed PV. Plan P: Admit to LND, consent for IOL, pitocin, cytotec, pain medication options, labor and delivery. PIV start, admission and Pre-E labs drawn. Close monitoring of BP Intermittent monitoring per protocol with Cytotec and Category I FHT CEFM x2 with IV medications, pitocin, epidural, and/or other than Category I FHT PO and IV hydration Can eat regular diet while on cytotec IV pain medications available; epidural when in active labor if desired Close monitoring of maternal/ status Anticipate Consult with OB as indicated MADELINE MARRERO CNM December 03, 2019 14:29
[2019-12-03] MEDS ORDERED: FENTANYL 2MCG/ML ROPIVACAINE 0.2% IN 0.9% NACL 100ML IVBAG As Ordered ONE (17:31)
[2019-12-03] MEDS ORDERED: OXYTOCIN 30 UNITS IN 0.9% NaCl 500ML IV BAG (J2590) As Ordered ONE (17:49)
[2019-12-03] MEDS ORDERED: miSOPROStol 50 MCG 1/2 TAB (S0191) PO SCH (18:00)
--- NOTE | 2019-12-03 18:14 | IPNPDOC ---
Text Note Date of Service The patient was seen on 12/03/19. NOTE Intrapartum Note Stacy is a 34yo at 38w0d by LMP c/w 8wk u/s undergoing IOL for CHTN on labetalol. She had IOL started with crystal bulb (80/80) and cytotec. Recently crystal bulb came out and patient is uncomfortable with regular ctx, requesting epidural. Has had some recent elevated bp's related to pain. pre-E labs on admission overall wnl (slightly elevated uric acid 6.3), urine prot:creat 0.27 and normal creatinine and LFTs and plt. Patient has no headache/vision changes/RUQ pain/SOB/CP. Vitals: recently 163/96, afebrile Cat I FHRT with bl 120's, +accels, -decels, mod thomas [place]: ctx q2-3min SCE 6/80/-2, intact Plan for epidural after IVF bolus Will continue to expectantly manage given regular ctx pattern and good cervical change Since elevated bp's likely related to pain, will continue to re-assess. If still elevated after epidural, will treat with IV anti-HTN med. Safe to proceed Dr. Rabia Wellington MD VSTony, I+O VSTony I+O Laboratory Tests 12/03/19 13:10 Vital Signs Date Time Temp Pulse Resp B/P (MAP) Pulse Ox O2 Delivery O2 Flow Rate FiO2 12/03/19 17:19 97.6 95 20 163/96 (118) Rabia Wellingotn MD December 03, 2019 18:14
[2019-12-03] MEDS ORDERED: diphenhydrAMINE 50MG/ML VIAL (J1200) IV PRN (19:30)
[2019-12-03] MEDS ORDERED: LACTATED RINGER'S 1000 ML IV PRN (19:30)
[2019-12-03] MEDS ORDERED: EPIDURAL/PCA KEYS XX PRN (19:30)
[2019-12-03] MEDS ORDERED: NALOXONE INJ 0.4MG/1ML VIAL (J2310 PER 1MG) IV PRN (19:30)
[2019-12-03] MEDS ORDERED: ePHEDrine SULFATE 25 MG/5 ML(5MG/ML) SYRINGE IV PRN (19:30)
[2019-12-03] MEDS ORDERED: REFRIGERATOR IV KEYS XX PRN (19:30)
[2019-12-03] MEDS ORDERED: EPIDURAL COMMENT XX SCH (19:30)
[2019-12-03] MEDS: FENTANYL/ROPIVACAINE/NACL BAG 100 ML EPIDURAL SCH (19:30)
[2019-12-03] MEDS ORDERED: ONDANSETRON 4MG/2ML VIAL IV PRN (19:30)
[2019-12-04] VITALS (21 sets, daily range): BP systolic 133–185; BP diastolic 77–98
[2019-12-04] MEDS ORDERED: LABETALOL 100MG/20ML VIAL IV STA (01:35)
--- NOTE | 2019-12-04 01:42 | IPNPDOC ---
Text Note Date of Service The patient was seen on 12/04/19. NOTE Intrapartum Note Stacy is a 34yo at 38w1d by LMP c/w 8wk u/s undergoing IOL for CHTN on labetalol. She had IOL started with crystal bulb (80/80) and cytotec. Crystal bul b came out around 1800 and she has been andreas well on her own since her last dose of cytotec with no need for further augmentation. Received epidural and she is currently comfortable. Has had some occasional severe range bp's, recently recurrent. Notably, did not receive her normal oral labetalol today. Pre-E labs on admission overall wnl (slightly elevated uric acid 6.3), urine prot:creat 0.27 and normal creatinine and LFTs and plt. Patient continues to explicitly deny headache/vision changes/RUQ pain/SOB/CP. Vitals: bp recently 174/89, 186/97, afebrile Cat I FHRT with bl 120's, +accels, -decels, mod thomas [place]: ctx q2-3min SCE 80/-2, AROM performed with copious clear fluid noted For bp: 20mg IV labetalol now as well as 30mg XL PO Nifedipine. If bp's remain severe range after this, will likely start MgSO4 Plan to re-check SCE in 2-4hr or earlier as indicated Safe to proceed Dr. Rabia Wellington MD VS,Tony, I+O VS, Tony, I+O Laboratory Tests 12/03/19 13:10 Vital Signs Date Time Temp Pulse Resp B/P (MAP) Pulse Ox O2 Delivery O2 Flow Rate FiO2 12/03/19 23:35 92 186/97 (126) 12/03/19 21:33 97.2 12/03/19 17:19 20 I&O- Last 24 Hours up to 6 AM 12/04/19 06:00 Intake Total 1200 ml Balance 1200 ml Rabia Wellington MD December 04, 2019 01:42
[2019-12-04] MEDS: NIFEdipine 30 MG XL TAB PO SCH ×2 (01:45→08:39)
[2019-12-04] MEDS ORDERED: NIFEdipine 10 MG CAP As Ordered ONE ×2 (01:51→01:53)
[2019-12-04] MEDS: FENTANYL/ROPIVACAINE/NACL BAG 100 ML EPIDURAL SCH (03:49)
[2019-12-04] MEDS ORDERED: OXYTOCIN DRIP 30 UNITS in IV 1 EA IV SCH (05:09)
[2019-12-04] MEDS ORDERED: IBUPROFEN 600 MG TAB PO PRN (05:15)
[2019-12-04] MEDS ORDERED: DOCUSATE SODIUM 100 MG CAP PO PRN (05:15)
[2019-12-04] MEDS ORDERED: DIBUCAINE 1% OINTMENT 30GM TOP PRN (05:15)
[2019-12-04] MEDS ORDERED: RHOGAM 300 MCG (1500 IU) INJ (J2790) IM SCH (05:15)
[2019-12-04] MEDS ORDERED: ACETAMINOPHEN TAB 650MG DOSE (2X325MG) PO PRN (05:15)
[2019-12-04] MEDS ORDERED: MEASLES,MUMPS,RUBELLA VACCINE INJ (MMR-II) (90707) SC SCH (05:15)
--- NOTE | 2019-12-04 05:15 | DNPDOC ---
[facility] Delivery Note Delivery Note DATE OF DELIVERY: 12/04/2019 PREDELIVERY DIAGNOSIS: 38w1d IOL for CHTN POST DELIVERY DIAGNOSIS: Delivered. PROCEDURE: Spontaneous vaginal delivery ASSET ADMINISTRATOR: Dr. Rabia Wellington MD ANESTHESIA: epidural ESTIMATED BLOOD LOSS: 250 mL. FINDINGS: 6 pound 8 ounce (2960g) male , Score 8/9, nuchal cord times 1. DELIVERY SUMMARY: Stacy is a 34yo [id number] s/p uncomplicated at 0453 on 12/04/19 after undergoing IOL for CHTN at 38w1d. She received cytotec, crystal bulb, and progressed on her own after AROM, clear. She received an epidural. At C/C/0 she began pushing with excellent effort. 's head delivered OA, restituted SHRUTHI. Left anterior shoulder delivered with ease followed by posterior shoulder, then remainder of body delivered to maternal abdomen after reducing loose nuchal cord. Infant was dried and stimulated; nose and mouth suctioned with bulb suction, strong, lusty cry, apgars 8/9. At 2 minutes of life, cord clamped x2 and cut by FOB. With uterine massage and traction on the cord, placenta delivered spontaneously and intact with 3 vessel centrally inserted cord. Pitocin bolus started with delivery of placenta. Fundus then firm at u-2cm with hemostasis noted. Upon inspection of vagina and perineum, small superficial right labial laceration was noted and repaired using a single figure of 8 with 4-0 vicryl suture. Good cosmetic effect with total reapproximation and complete hemostasis noted. All counts correct x2. Mom and were doing well when I left the room. MD Eliz Cooper Katrina D MD December 04, 2019 05:15
[2019-12-04] MEDS: IBUPROFEN 800 MG TAB PO PRN ×2 (05:46→18:23)
[2019-12-04 06:19] LABS: HEMATOCRIT 33.6 % (36.0-47.0); HEMOGLOBIN 11.4 g/dl (12.0-15.5); MEAN CORPUSCULAR HEMOGLOBIN 30.5 pg (27.0-33.0); MEAN CORPUSCULAR HGB CONC 33.9 g/dl (32.0-36.5); MEAN CORPUSCULAR VOLUME 89.8 fl (80.0-96.0); PLATELET COUNT, AUTOMATED 242 10^3/uL (150-450); RED BLOOD COUNT 3.74 10^6/uL (4.00-5.40)
[2019-12-04] MEDS: ACETAMINOPHEN 500 MG TAB PO PRN ×2 (08:01→16:03)
[2019-12-04] MEDS: PRENATAL VITAMINS CHEWABLE TABLET PO SCH (08:39)
[2019-12-05] VITALS (9 sets, daily range): BP systolic 126–182; BP diastolic 80–110
[2019-12-05] MEDS: ACETAMINOPHEN 500 MG TAB PO PRN ×3 (00:59→21:07)
[2019-12-05] MEDS: IBUPROFEN 800 MG TAB PO PRN ×2 (02:40→11:51)
[2019-12-05 07:38] LABS: HEMATOCRIT 29.8 % (36.0-47.0); HEMOGLOBIN 10.2 g/dl (12.0-15.5); MEAN CORPUSCULAR HEMOGLOBIN 30.3 pg (27.0-33.0); MEAN CORPUSCULAR HGB CONC 34.2 g/dl (32.0-36.5); MEAN CORPUSCULAR VOLUME 88.4 fl (80.0-96.0); PLATELET COUNT, AUTOMATED 228 10^3/uL (150-450); RED BLOOD COUNT 3.37 10^6/uL (4.00-5.40); WHITE BLOOD COUNT 10.3 10^3/uL (4.0-10.0)
[2019-12-05] MEDS: PRENATAL VITAMINS CHEWABLE TABLET PO SCH (08:40)
[2019-12-05] MEDS ORDERED: LABETALOL 100 MG TAB PO SCH ×2 (09:00→19:00)
[2019-12-05] MEDS ORDERED: NIFEdipine 10 MG CAP PO SCH (09:00)
[2019-12-05 09:05] LABS: ALT/SGPT 19 U/L (12-78); BILIRUBIN,TOTAL 0.1 MG/DL (0.2-1.0); CREATININE FOR GFR 0.47 MG/DL (0.55-1.30); GLOMERULAR FILTRATION RATE > 60.0 (>60); LDH LACTATE DEHYDROGENASE 241 U/L (84-246); URIC ACID 5.6 MG/DL (2.6-6.0)
[2019-12-05] MEDS: SERTRALINE 100 MG TAB PO SCH (09:19)
[2019-12-05 10:14] LABS: CREATININE,RANDOM URINE 41.5 MG/DL; TOTAL PROTEIN,RANDOM URINE 11.9 MG/DL (0.0-12.0)
[2019-12-05] MEDS ORDERED: MAXZIDE 75/50 TABLET PO ONE (20:15)
[2019-12-05] MEDS ORDERED: PILL CUTTER 1 EACH XX PRN (20:15)
[2019-12-06] VITALS (9 sets, daily range): BP systolic 140–184; BP diastolic 75–100
[2019-12-06] MEDS: LABETALOL 200 MG TAB PO SCH ×2 (06:11→18:50)
--- NOTE | 2019-12-06 07:21 | IPNPDOC ---
Progress Note Date of Service: December 06, 2019 Day#: 2 Progress Note SUBJECT:Patient is a 34 yo s/p PPD #2. Patient was induced for CHTN. Patient without concerns today. Denies BAZZI/N/V/Change in vision. She has been ambulating, voiding spontaneously without issue and tolerating regular diet. Breast feeding without issue. Plan on depoprovera for contraception. Labetalol dose increased to 300mg BID and maxzide was added for BP control yesterday. OBJECTIVE: VITAL SIGNS: high mild range Alert and oriented times three. Abdomen: Fundus firm at U-2. Soft, NTTP. LE: no edema/erythema/tenderness A/P ppd #2, chtn, BP remains mildly elevated. increase labetalol to 400mg bid. Continue with maxzide. Will reassess this afternoon for discharge. patient encouraged to BF. Le, DO VS, I&O, 24H, Fishbone Vital Signs/I&O Vital Signs Date Time Temp Pulse Resp B/P (MAP) Pulse Ox O2 Delivery O2 Flow Rate FiO2 12/06/19 06:11 80 152/88 12/06/19 06:00 97.8 18 12/06/19 02:00 98 Room Air I&O- Last 24 Hours up to 6 AM 12/06/19 06:00 Intake Total 500 ml Balance 500 ml Laboratory Data 24H LABS Laboratory Tests 2 12/05/19 07:16: Nucleated Red Blood Cells % (auto) 0.0 12/05/19 08:13: Glomerular Filtration Rate > 60.0, Uric Acid 5.6, Total Bilirubin 0.1#L, Aspartate Amino Transf (AST/SGOT) 25, Alanine Aminotransferase (ALT/SGPT) 19, Lactate Dehydrogenase 241 12/05/19 09:24: Urine Random Creatinine 41.5, Urine Random Total Protein 11.9 CBC/BMP Laboratory Tests 12/05/19 07:16 12/05/19 08:13 ANTHONY MOREL DO December 06, 2019 07:11
[2019-12-06 07:28] LABS: HEMATOCRIT 31.5 % (36.0-47.0); HEMOGLOBIN 10.7 g/dl (12.0-15.5); MEAN CORPUSCULAR HEMOGLOBIN 30.1 pg (27.0-33.0); MEAN CORPUSCULAR VOLUME 88.5 fl (80.0-96.0); PLATELET COUNT, AUTOMATED 278 10^3/uL (150-450); RED BLOOD COUNT 3.56 10^6/uL (4.00-5.40); WHITE BLOOD COUNT 9.7 10^3/uL (4.0-10.0)
[2019-12-06] MEDS: SERTRALINE 100 MG TAB PO SCH (09:29)
[2019-12-06] MEDS: PRENATAL VITAMINS CHEWABLE TABLET PO SCH (09:29)
[2019-12-06] MEDS: MAXZIDE 75/50 TABLET PO SCH (09:30)
--- NOTE | 2019-12-06 13:21 | IPN ---
DATE: 12/05/2019 This is a 34-year-old 3, para 2 now, who was admitted at 38 weeks for induction of labor, chronic hypertension and a two-vessel cord. She also suffers from migraines and depression. She had a live male infant, spontaneous vaginal delivery with epidural in place, 6 pounds 8 ounces, 2960 grams, scores of 8 and 9 in 1 and 5 minutes respectively. Her admitting hemoglobin was 12.1, hematocrit 36.6 and platelets were 295. Her day three hemoglobin was 10.2, hematocrit 29.8 and platelets were 228. She had initial chemistry done on 12/02 which showed that her uric acid was 6.3 and her protein creatinine ratio was 0.27. Her vital signs on the prior to suspected discharge was 156/102 which was not reported to the practitioner, 151/96, 153/96. Previous to that, her blood pressures were 150/87 and 151/84. Throughout her delivery, she had sporadic elevated blood pressures of 175/85 and 159/84. She was on labetalol 100 twice a day, which controlled her and she was on Zoloft 200 daily. She denies any headache, right upper quadrant pain, nausea, vomiting, edema or decreased urinary output or any migraines. A repeat this morning of her lab work is pending her pre-eclamptic profile and her complete blood count (CBC). Based on the chemistry will determine whether or not she needs mag sulfate or just maintain her medications, which are presently ordered. The rest of the examination is unremarkable. She is normocephalic, atraumatic. Neck full range of motion. Pupils equal and reactive to light. Distal pulses symmetric. No evidence of deep vein thrombosis (DVT), pulmonary emboli (PE) or superficial phlebitis. Chest is clear bilaterally at the bases. No wheezes or rhonchi. No costovertebral angle (CVA) tenderness. No right upper quadrant pain. Reflexes are normal. There is no edema. She has no rashes, lesions or pruritus. No arthralgia, myalgia. No complaints of cough, wheeze, shortness of breath or dyspnea on exertion. No nausea, vomiting, diarrhea or constipation. In summary, we have a term gestation admitted for induction of labor, chronic hypertension, presently still with severe range blood pressures. We will treat based on our chemistry and we will reinstitute her labetalol 100 mg twice a day and her Zoloft 200 mg daily. We discussed with the patient. We had a 30-minute question/answer period.
[2019-12-06] MEDS: IBUPROFEN 800 MG TAB PO PRN ×2 (13:36→23:22)
[2019-12-06] MEDS ORDERED: FUROSEMIDE 20MG/2ML VIAL (J1940) IV ONE (15:00)
[2019-12-06] MEDS ORDERED: NIFEdipine 30 MG XL TAB PO ONE (19:00)
[2019-12-06] MEDS: ACETAMINOPHEN 500 MG TAB PO PRN (19:45)
[2019-12-07 02:00] VITALS: BP 138/92
[2019-12-07 06:00] VITALS: BP 144/88
[2019-12-07] MEDS: LABETALOL 200 MG TAB PO SCH (06:16)
--- NOTE | 2019-12-07 07:53 | IPNPDOC ---
Progress Note Date of Service: Dec 07, 2019 Day#: 3 Progress Note SUBJECT:Patient is a 34 yo s/p PPD #3. Patient was induced for CHTN. Patient without concerns today. Denies BAZZI/N/V/Change in vision. She has been ambulating, voiding spontaneously without issue and tolerating regular diet. Breast feeding without issue. Plan on depoprovera for contraception. Patient given one dose of lasix yesterday IV and put out about 2400cc urine. She was started on nifedipine 30mg XL. OBJECTIVE: VITAL SIGNS: mild range. Alert and oriented times three. cta s w/r/r s1s2 s m/g/c Abdomen: Fundus firm at U-2. Soft, NTTP. LE: no edema/erythema/tenderness A/P ppd #2, chtn, BP better controlled today. continue with labetalol, maxzide and nifedipine xl. discharge instructions given. d/c home today. Le, DO VS, I&O, 24H, Fishbone Vital Signs/I&O Vital Signs Date Time Temp Pulse Resp B/P (MAP) Pulse Ox O2 Delivery O2 Flow Rate FiO2 12/07/19 06:16 89 144/88 12/07/19 06:00 98.9 18 12/06/19 18:47 Room Air 12/06/19 17:45 98 I&O- Last 24 Hours up to 6 AM 12/07/19 05:59 Intake Total 1200 ml Output Total 2700 ml Balance -1500 ml ANTHONY MOREL DO Dec 07, 2019 07:53
--- NOTE | 2019-12-07 07:57 | OBDS ---
[facility] Obstetrical Discharge Sum. Obstetrical Discharge Summary : 3 Term: 2 Pre-term: 0 Abortions: 1 Livin VDRL: Non-Reactive Sex: Male Infant Weight: pounds (6), ounces (8) Anesthesia: Regional Anesthesia A/P, Post Course List any complications Admission diagnosis: gravid at 38wks gestation CHTN Discharge diagnosis: CHTN Condition at Discharge: stable Discharge Instructions: Home Activity: as tolerated Diet: regular Medications: filled at [facility] Follow-up: 1 week at OB clinic for BP check Hospital course: patient admitted at 38wks gestation for induction of labor secondary to chronic hypertension on medication. She progressed to delivery vaginally. course, patient's blood pressure needed to be controlled with increased dose of labetalol and addition of maxzide and nifedipine xl. One dose of lasix given as well. Patient's blood pressure was controlled and discharged on day #3. ANTHONY MOREL DO December 06, 2019 07:25
[2019-12-07] MEDS ORDERED: NIFEdipine 30 MG XL TAB PO SCH (09:00)
[2019-12-07] MEDS: PRENATAL VITAMINS CHEWABLE TABLET PO SCH (09:12)
[2019-12-07] MEDS: MAXZIDE 75/50 TABLET PO SCH (09:12)
[2019-12-07 09:16] VITALS: BP 104/60
[2019-12-07] MEDS: SERTRALINE 100 MG TAB PO SCH (09:16)
--- NOTE | 2019-12-09 07:48 | IPN ---
DATE: 12/04/2019 This patient and requested circumcision of their male . After discussing risks and benefits of circumcision, the medical and nonmedical indications, penile block and aftercare, expressed understanding of penile block, aftercare and bleeding. Signed the consent form. All questions were answered. 20-minute discussion. We await clearance by the digital ad trafficker.
== END 2019-12-07 11:10 | disposition home or self-care (01) | DRG 806 ==
LOC: M LDI 11:59 → M OBS 12-04 14:46
PROVIDERS: ADMIT Registered Nurse Maternal Newborn; ATTEND Registered Nurse Maternal Newborn
PROC: 3E0P7VZ Introduction of Hormone into Female Reproductive, Via Natural or Artificial Opening (ICD-10-PCS; 2019-12-03)
PROC: 10E0XZZ Delivery of Products of Conception, External Approach (ICD-10-PCS; principal; 2019-12-04)
PROC: 0HQ9XZZ Repair Perineum Skin, External Approach (ICD-10-PCS; 2019-12-04)
PROC: 10907ZC Drainage of Amniotic Fluid, Therapeutic from Products of Conception, Via Natural or Artificial Opening (ICD-10-PCS; 2019-12-04)
DX: O10.92 Unspecified pre-existing hypertension complicating childbirth (principal); Z37.0 Single live birth; O99.354 Diseases of the nervous system complicating childbirth; Z3A.38 38 weeks gestation of pregnancy; O69.81X0 Labor and delivery complicated by cord around neck, without compression, not applicable or unspecified; O70.0 First degree perineal laceration during delivery; F32.9 Major depressive disorder, single episode, unspecified; O99.344 Other mental disorders complicating childbirth; G43.909 Migraine, unspecified, not intractable, without status migrainosus